=== PATIENT | female | born 1985 | race Caucasian/White ===

== ENCOUNTER 2019-02-26 06:21 | Day surgery (SDC) | payer OTHER ==
--- NOTE | 2019-02-25 14:30 | HP ---
Date/Time of Note Date/Time of Note DATE: 02/25/19 TIME: 14:23 Assessment/Plan Assessment/Plan Hospital Course 33y F w/ R ankle fx, displaced medial malleolus fx and displaced distal fibula fx PLAN - Given medial malleolus fracture and displacement, recommended RIGHT ankle ORIF. Discussed ORIF in detail goals, risks, benefits recovery, alternatives, etc. Answered all questions. All consent forms signed. Education for overdose signed. -Patient has well controlled asthma on albuterol PRN, no PSHx, no known allergies. PLAN for RIGHT ankle open reduction internal fixation, possible syndesmotic screw HPI/ROS Peds Admit Date/Time Admit Date/Time Hx of Present Illness Free Text/Dictation 33yo F with R Ankle injury DOI: 02/16/19 [place]: going over fence, rolled ankle Seen at [facility], XR fx negative except for HPI Constitutional: No no other recent illness, No trauma, No sick contacts, No travel, No pets, No weight changes, No poor feeding, No fever, No other Eyes: No no complaints, No pain, No discharge, No redness, No visual change, No other ENT: No no complaints, No bleeding, No pain, No congestion, No discharge, No dysphagia, No sore throat, No other Respiratory: No no complaints, No pain, No cough, No pleuritic pain, No shortness of breath, No sputum, No wheezing, No other Cardiovascular: No no complaints, No chest pain, No chest pain w/ exertion, No edema, No lightheadedness, No palpitations, No other PMH/Family/Social Past Medical History Primary Care Provider [facility] Developmental History: appropriate Diet History: regular for age Past Surgical History: none Allergies: Coded Allergies: No Known Allergy (Unverified , 02/25/19) Medication Tylenol prn, [place] prn QHS Family History Significant Family History: no pertinent family hx Social History Tobacco exposure in home: No Exam/Review of Systems Exam Free Text/Dictation General: NAD, well-appearing Pulse: RRR Unlabored breathing R ankle Severe edema and ecchymosis throughout ankle Skin intact ROM deferred +TA/EHL/FHL/GCS, SILT FDWS/M/L/D/P, 2+DP WWP Right knee TTP patella tendon NTTP throughout rest of the knee No effusion Results Results 24hrs 02/16/19 XR [facility] 3v R ankle- displaced medial malleolus fx , displaced oblique distal fibula fx, displaced KILLIAN ROSADO Feb 25, 2019 14:30
[2019-02-25 17:43] VITALS: BMI 36.7
[~2019-02-26] VITALS: Ht 157.5 cm; Wt 92.0 kg
[2019-02-26] VITALS (13 sets, daily range): BP systolic 100–125; BP diastolic 67–83; PULSE 60–79; RESP 15–80; Ht 157.5 cm; Wt 92.0 kg
[~2019-02-26 06:21] MED LIST: CEFAZOLIN (20 MG/ML) IV SYG IV* ONE; CEFAZOLIN 2 GM/50 ML (PMX) 50 ML IVPB SCH; LACTATED RINGER'S 1,000 ML IV SCH; LIDOCAINE 4% CR TOP ONE
[2019-02-26] MEDS ORDERED: LIDOCAINE 2% (SDV) 5 ML INJ ONE (07:00)
[2019-02-26] MEDS ORDERED: POLYMYXIN/BACITRACIN 1L IRRIG ONE (07:07)
--- NOTE | 2019-02-26 07:12 | PREAC ---
Date/Time of Note Date/Time of Note DATE: 02/26/19 TIME: 07:08 Anesthesia Eval and Record Evaluation Time Pre-Procedure Interview DATE: 02/26/19 TIME: 07:08 Age 33 Sex female NPO: 8 hrs Preoperative diagnosis R ankle fx, displaced medial malleolus fx and displaced distal fibula fx Planned procedure right ankle ORIF Past Medical History Past Medical History: Includes Pulm: Asthma GI: Obesity Surgery & Anesthesia Issues Family H Complications (after mother had dental work had induced coma?.. per patient. Pt unaware details because it was when she was a child. Mother is ok. pt has dental work with local anesthesis without compliations), No known issue Meds Anticoagulation: No Beta Odalis within 24 hr: No Reason Beta Odalis not given: Pt. not on B-Odalis No Active Prescriptions or Reported Meds Current Medications Lactated Ringer's 1,000 ml @ 25 mls/hr Q24H IV ; Start 02/25/19 at 14:22 Meds reviewed: Yes Allergies Coded Allergies: No Known Allergy (Unverified , 02/26/19) Allergies Reviewed: Yes Labs/Studies Labs Reviewed: Reviewed by anesthesiologist test: Negative Studies: ECG Pre-procedure Exam Airway: Adequate mouth opening, Adequate thyromental dist Mallampati: Mallampati II Teeth: Normal Lung: Normal Heart: Normal ASA Physical Status ASA physical status: 2 Emergency: None Planned Anesthetic General/MAC: ETT Nerve block: Femoral (right), Sciatic (right) Planned Pain Management Single shot nerve block, Local by surgeon Pre-operative Attestations Prior to commencing anesthesia and surgery, the patient was re-evaluated, there was verification of: *The patient's identity *The results of appropriate recent lab work and preoperative vital signs *The above evaluation not changing prior to induction *Anesthetic plan, risk benefits, alternative and complications discussed with patient/family; questions answered; patient/family understands, accepts and wishes to proceed. BLU WHITMAN CRNA February 26, 2019 07:12
[2019-02-26] MEDS ORDERED: ROPIVACAINE 0.5 % 30 ML VIAL ONE (07:15)
[2019-02-26] MEDS ORDERED: MIDAZOLAM 1 MG/ML 2 ML INJ ONE (07:19)
[2019-02-26] MEDS ORDERED: FENTAnyl 50 MCG/ML VIAL ONE ×2 (07:19→08:14)
[2019-02-26] MEDS ORDERED: ROPIVACAINE 0.2% 20 ML VIAL ONE (07:23)
[2019-02-26] MEDS ORDERED: CEFAZOLIN 1 GM INJ ONE (08:04)
[2019-02-26] MEDS ORDERED: DEXAMETHASONE 4 MG/ML 5 ML INJ ONE (08:08)
[2019-02-26] MEDS ORDERED: ONDANSETRON 4 MG INJ ONE (08:08)
[2019-02-26] MEDS ORDERED: FAMOTIDINE 20 MG INJ ONE (08:08)
[2019-02-26] MEDS ORDERED: PROPOFOL 20 ML ONE (09:46)
--- NOTE | 2019-02-26 09:56 | SIPON ---
Date/Time of Note Date/Time of Note DATE: 02/26/19 TIME: 09:55 Operative Report Preoperative Diagnosis RIGHT ankle bimalleolar fracture Postoperative Diagnosis RIGHT ankle bimalleolar fracture Operation/Procedure Performed RIGHT ankle bimalleolar fracture open reduction internal fixation Surgeon see signature line senior office support assistant sosa none Anesthesia: general, other (R pop and saphenous block) Estimated blood loss: minimal Transfusion Required none Specimen none Grafts/Implants Synthes 1/3 tubular plate with associated 3.5mm cortical screws x 7, 4.0 cannulated screws x 2 Complications none Torniquet: 83min KILLIAN ROSADO February 26, 2019 09:56
[2019-02-26] MEDS ORDERED: FENTAnyl 50 MCG/ML VIAL IV PRN (10:00)
[2019-02-26] MEDS ORDERED: MEPERIDINE 25 MG INJ IV PRN (10:00)
[2019-02-26] MEDS ORDERED: ONDANSETRON 4 MG INJ IV PRN (10:00)
[2019-02-26] MEDS ORDERED: KETOROLAC 30 MG INJ IV PRN (10:00)
[2019-02-26] MEDS ORDERED: OXYCODONE/ACETAMINOPHEN (5/325) TAB PO PRN (10:00)
[2019-02-26] MEDS ORDERED: HYDROmorphONE 1 MG/5 ML IV SYRINGE IV PRN ×2 (10:00)
--- NOTE | 2019-02-26 10:02 | PAC ---
Date/Time of Note Date/Time of Note DATE: 02/26/19 TIME: 10:01 Post-Anesthesia Notes Post-Anesthesia Note Last documented vital signs bp 100/83 Sp02 98% HR 83 RR 16 T 98.3F Activity: WNL Respiratory function: WNL Cardiovascular function: WNL Mental status: Baseline Pain reasonably controlled: Yes Hydration appropriate: Yes Nausea/Vomiting absent: Yes BLU WHITMAN CRNA February 26, 2019 10:02
--- NOTE | 2019-02-26 10:58 | OPR ---
DATE OF OPERATION: 02/26/2019 PREOPERATIVE DIAGNOSIS: Right ankle bimalleolar fracture. POSTOPERATIVE DIAGNOSIS: Right ankle bimalleolar fracture. OPERATION PERFORMED: Right ankle bimalleolar open reduction internal fixation. EXTRACTOR OPERATOR HELPER: None. ANESTHESIA: VAUGHN Yan. IMPLANTS: Synthes 1/3 tubular plate with associated 3.5 cortical screws x7 and a 4-0 cannulated screw x2. TOURNIQUET TIME: 83 minutes. COMPLICATIONS: None. SPECIMENS: None. HISTORY OF PRESENT ILLNESS: A 33-year-old female who sustained a right ankle fracture on 02/16/2019 when she was going over a fence and rolled her ankle. She was seen at an outside hospital where x-rays were taken. She was placed in a splint and presented to my clinic. Examination of her leg demonstrated edema and ecchymosis however, skin was intact. She was neurovascularly intact. Given her x-rays we discussed open reduction internal fixation of her ankle fracture. We discussed all risks, benefits and alternatives including pain, bleeding, infection, nonunion, malunion, risk for repeat surgery, hardware removal, arthritis, damage to neurovascular structures. We discussed all risks, benefits and alternatives in detail and all questions were answered. The patient elected to proceed with surgery. DESCRIPTION OF PROCEDURE: The patient was brought to the operating room. Timeout was performed confirming patient, operative site and procedure. She did receive 2 grams of Ancef prior to start of the case. She was positioned on to the bed. A bump was placed under her right ipsilateral hip and bone foam was placed into the right leg. A nonsterile thigh tourniquet was also placed. The right lower extremity was then prepped and draped in usual sterile fashion. An Esmarch was used to exsanguinate the leg and tourniquet was taken up to 250 mmHg. A midline incision over the lateral aspect of the fibula, carried down to the fracture site. The fracture was comminuted. There was an oblique spiral fracture. I did not remove the periosteum off the comminuted piece in order to allow it to be incorporated into the final fixation construct. I cleaned the posterior apex as well as the anterior aspect of the fracture in order to obtain a read as then used a crab claw to do an internal rotation with lengthening of the fibular fracture fragment and was able to obtain an excellent reduction. I was happy with this reduction despite the fact that the comminuted piece did not kan in perfectly. I decided to place a lag screw. I used a 3.5 mm drill bit followed by a 2.5 mm drill bit through the second cortex and placed in lag screw with adequate fixation and compression. I then used 1/3 tubular plate for neutralization. I placed 3 screws distally, making sure that they were not bicortical and that they were not intra-articular. I also used three 3.5 mm cortical screws proximally with excellent fixation. I confirmed on fluoroscopy, AP, lateral, and mortise that I was out to length with the fibular fragment it was in anatomic position and it was anatomically reduced. I was happy with this reduction therefore I moved to the medial side. I made an incision over the anterior medial aspect of the medial malleolus. I took this directly down to bone. The fracture fragment was visualized. I used a dental pick curette and a tonsil to clean out the medial joint space, which did have some small fragments. I used copious irrigation to clean out the joint space. I then used a [id number] clamp to obtain my reduction followed this with 2 wires to maintain the reduction. I overdrilled and the K-wires to length a 45 mm and placed a 4-0 cannulated partially threaded screw and length 44 mm on both the anterior and posterior colliculus. I was happy with the trajectory as well as the compression of the fragment and the fixation of the screws. I then confirmed my final reductions and hardware placement with fluoroscopy, AP, lateral, and mortise were taken with the mortise view I also did an external rotation stress test, which demonstrated there was no medial joint space widening or tib-fib clear space widening. The syndesmosis was stable. I therefore copiously irrigated all the wounds. I used 0 Vicryl to close the periosteum and the peritoneal sheath over the lateral plate, followed by 3-0 Vicryl for subcutaneous tissue and a 3-0 nylon in interrupted horizontal mattress fashion. The medial wound was also copiously irrigated. 3-0 Vicryl was used to close the deep tissue followed by 3-0 nylon in a horizontal mattress fashion. The wounds were then washed and dried. Xeroform, 4 x 4's, sterile Webril were placed. Tourniquet was taken down at 83 minutes. The patient was placed in a posterior splint and was extubated and stable to the PACU without any difficulty. She did receive a popliteal and saphenous adductor block prior to the start of the case. PLAN: She will be nonweightbearing on the right lower extremity for a total of 6 weeks. She was seen in clinic in 10 days at which point we will remove the splint, remove sutures and transition her to a CAM boot to allow early range of motion; however, nonweightbearing. Dictated By: KILLIAN ROSADO MD MS/NTS Conf#: [id number] DID#: [id number] CC: KILLIAN ROSADO MD;*EndCC* MTDD
== END 2019-02-26 12:18 | disposition home or self-care (01) ==
LOC: SDS 06:21
PROVIDERS: ATTEND Orthopaedic Surgery
DX: S82.841D Displaced bimalleolar fracture of right lower leg, subsequent encounter for closed fracture with routine healing (principal); X58.XXXD Exposure to other specified factors, subsequent encounter; J45.909 Unspecified asthma, uncomplicated
CPT/HCPCS: 27814; 73610; 84703; C1713; J0690; J1100; J2175; J2250; J2405; J2795; J3010; Z7512; Z7610